=== PATIENT | female | born 1980 | race African-American/Black ===

== ENCOUNTER 2017-06-05 10:50 | Emergency (ER) | payer OTHER ==
[~2017-06-05] VITALS: Ht 149.9 cm; Wt 90.7 kg
[~2017-06-05 10:50] MED LIST: ALBUTEROL SULF8.5 GM INH; AZITHROMYCIN250 MG ORAL; BUSPAR10 MG ORAL; HYDROCHLOROTHIA25 MG ORAL; LATUDA120 MG PO; LEVOTHYROXINE125 MCG ORAL; LISINOPRIL40 MG ORAL; PAROXETINE HCL20 MG PO; PROMETHAZI6.25 MG/1 ORAL; TRAMADOL HCL50 MG ORAL
[2017-06-05] MEDS ORDERED: NKM (11:00)
[2017-06-05] MEDS ORDERED: HYDROCHLOROTHIA25 MG ORAL (11:46)
[2017-06-05] MEDS ORDERED: SYNTHROID125 MCG ORAL (11:46)
[2017-06-05] MEDS ORDERED: LISINOPRIL40 MG ORAL (11:47)
[2017-06-05 12:05] VITALS: BP 143/98
--- NOTE | 2017-06-06 15:40 | Emergency Room Report ---
History of Present Illness General Chief Complaint: General Complaint Source: Patient Present Illness HPI 36-year-old female presents to ED for evaluation. Notes cramping of her hands for the last 5 days. Throbbing, 5/10, nonradiating. States that she has history of hypothyroidism and normally takes Synthroid. Has not take her medication nearly 9 months ago she does not have a PMD. States that she is at cramping sensations like this when she did not take her Synthroid. No other aggravating or leading factors. Denies any other associated symptoms Allergies: Coded Allergies: No Known Allergies (Unverified , 03/30/15) Patient History Last Menstrual Period: 3 1/2 weeks ago Now: No Immunizations: UTD Reviewed Nursing Documentation: PMH: Agreed, PSxH: Agreed Nursing Documentation-PMH Hx Cardiac Problems: Yes - Hypothyroidism Hx Hypertension: Yes Hx Neurological Problems: Yes - Rheumatoid arthritis Review of Systems All Other Systems: negative except mentioned in HPI Physical Exam Vital Signs Date Time Temp Pulse Resp B/P (MAP) Pulse Ox O2 Delivery O2 Flow Rate FiO2 06/05/17 10:56 98.4 99 16 143/98 99 Room Air Sp02 EP Interpretation: reviewed, normal General Appearance: no apparent distress, alert, GCS 15, non-toxic Head: normocephalic, atraumatic Eyes: bilateral eye normal inspection, bilateral eye PERRL ENT: hearing grossly normal, normal pharynx, no angioedema, normal voice Neck: full range of motion, supple/symm/no masses Respiratory: chest non-tender, lungs clear, normal breath sounds, speaking full sentences Cardiovascular #1: regular rate, rhythm, no edema Cardiovascular #2: 2+ carotid (R), 2+ carotid (L), 2+ radial (R), 2+ radial (L) , 2+ dorsalis pedis (R), 2+ dorsalis pedis (L) Gastrointestinal: normal bowel sounds, non tender, soft, non-distended, no guarding, no rebound Rectal: deferred Genitourinary: normal inspection, no CVA tenderness Musculoskeletal: back normal, gait/station normal, normal range of motion, non- tender Neurologic: alert, oriented x3, responsive, motor strength/tone normal, sensory intact, speech normal Psychiatric: judgement/insight normal, memory normal, mood/affect normal, no suicidal/homicidal ideation Reflexes: 3+ bicep (R), 3+ bicep (L), 3+ tricep (R), 3+ tricep (L), 3+ knee (R) , 3+ knee (L) Skin: normal color, no rash, warm/dry, well hydrated Lymphatic: no adenopathy Medical Decision Making Diagnostic Impression: Primary Impression: Medication refill Additional Impression: Hypothyroidism Qualified Codes: E03.9 - Hypothyroidism, unspecified ER Course 36-year-old female presents to ED refill of her medication. History of hypothyroidism takes synthroid hospital course: After initial history and physical, I ordered TSH T4 and T3 level TSH within normal limits, T4 low, T3 pending Patient given refill of her Synthroid, given refills of her hydrochlorothiazide and lisinopril Diagnosis-encounter for medication refill, hypothyroidism Stable and discharged to home with prescription for synthroid, lisinopril, hctz. Followup with PMD. Return to ED if symptoms recur or worsen Labs Test 06/05/17 11:42 Thyroid Stimulating Hormone (TSH) 2.696 uiU/mL (0.358-3.740) Free Thyroxine 0.68 NG/DL (0.76-1.46) Free Triiodothyronine 2.6 pg/mL (2.3-4.2) Last Vital Signs Date Time Temp Pulse Resp B/P (MAP) Pulse Ox O2 Delivery O2 Flow Rate FiO2 06/05/17 12:05 98.4 16 143/98 99 Room Air 06/05/17 10:56 99 Status: improved Disposition: HOME, SELF-CARE Condition: Stable Scripts Lisinopril* (LISINOPRIL*) 40 Mg Tablet 40 MG ORAL DAILY, #30 TAB Prov: SUSANNA LARES M.D. 06/05/17 Hydrochlorothiazide* (HYDROCHLOROTHIAZIDE*) 25 Mg Tablet 25 MG ORAL DAILY, #30 TAB Prov: SUSANNA LARES M.D. 06/05/17 Levothyroxine Sodium* (SYNTHROID*) 125 Mcg Tablet 125 MCG ORAL DAILY, #30 TAB Take in the morning on an empty stomach, at least 30 minutes before food. Prov: SUSANNA LARES M.D. 06/05/17 Referrals: [facility],REFERRING (PCP) Patient Instructions: Hypothyroidism SUSANNA LARES M.D. Jun 06, 2017 15:40
== END 2017-06-05 12:05 | disposition home or self-care (01) ==
LOC: EMR 11:45
DX: Z76.0 Encounter for issue of repeat prescription (principal); E03.9 Hypothyroidism, unspecified; I10 Essential (primary) hypertension; M06.9 Rheumatoid arthritis, unspecified
CPT/HCPCS: 36415; 84439; 84443; 84480; 84481; 99283

== ENCOUNTER 2017-10-19 11:12 | Emergency (ER) | payer OTHER ==
[~2017-10-19] VITALS: Ht 147.3 cm; Wt 72.6 kg
[~2017-10-19 11:12] MED LIST changes: +NKM; +SYNTHROID125 MCG ORAL
[2017-10-19 11:44] VITALS: BP 134/91
--- NOTE | 2017-10-19 11:56 | Emergency Room Report ---
History of Present Illness General Chief Complaint: Headache Source: Patient, Medical Record Present Illness HPI Patient present with complaints of headache somewhat diffuse Pain has slowly come on over the past few days in line with her usual headaches Patient has been off her blood pressure medication as well Denies any chest pain or shortness of breath patient had reported lightheadedness at the triage however denies any at this time Denies any back or flank pain Patient reports frustration with attempting to obtain primary physician Was here last time with check of her thyroid levels and medication refill And reports that she has difficulty getting regular physician and that she has been getting in arguments with other primary physician's Allergies: Coded Allergies: No Known Allergies (Unverified , 03/30/15) Patient History Past Medical History: see triage record Pertinent Family History: none Last Menstrual Period: 10/01/17 Reviewed Nursing Documentation: PMH: Agreed; PSxH: Agreed Nursing Documentation-PMH Past Medical History: No History, Except For Hx Cardiac Problems: Yes - Hypothyroidism Hx Hypertension: Yes Hx Neurological Problems: Yes - Rheumatoid arthritis Review of Systems All Other Systems: negative except mentioned in HPI Physical Exam Vital Signs Date Time Temp Pulse Resp B/P (MAP) Pulse Ox O2 Delivery O2 Flow Rate FiO2 10/19/17 11:27 97.8 91 18 134/91 98 Room Air 97.9 Sp02 EP Interpretation: reviewed, normal General Appearance: well appearing, no apparent distress Head: normocephalic, atraumatic Eyes: bilateral eye PERRL, bilateral eye EOMI ENT: hearing grossly normal, normal pharynx, TMs + canals normal, uvula midline Neck: full range of motion, supple, no meningismus, no bony tend Respiratory: lungs clear, normal breath sounds, no rhonchi, no respiratory distress, no retraction, no accessory muscle use Cardiovascular #1: normal peripheral pulses, regular rate, rhythm, no edema, no gallop, no JVD, no murmur Gastrointestinal: normal bowel sounds, non tender, soft, no mass, no organomegaly, non-distended, no guarding, no hernia, no pulsatile mass, no rebound Genitourinary: no CVA tenderness Musculoskeletal: normal inspection Neurologic: oriented x3, responsive, hearings reporter III-XII nml as tested, motor strength/ tone normal, sensory intact Psychiatric: mood/affect normal Skin: normal color, no rash, warm/dry, palpation normal Lymphatic: normal inspection, no adenopathy Medical Decision Making Diagnostic Impression: Primary Impression: Headache Additional Impression: Hypothyroidism ER Course Patient's presentation is consistent with breakthrough headache Patient also requesting medication refill She has a benign neurological exam I do not suspect any central process and patient stable for close outpatient follow-up Rhythm Strip Diag. Results EP Interpretation: yes Rate: 67 Rhythm: NSR, no PVC's, no ectopy Last Vital Signs Date Time Temp Pulse Resp B/P (MAP) Pulse Ox O2 Delivery O2 Flow Rate FiO2 10/19/17 11:44 97.9 84 18 134/91 98 Room Air 97.9 Status: improved Disposition: HOME, SELF-CARE Condition: Improved Additional Instructions: Patient is provided with the discharge instructions notified to follow up with primary doctor in the next 2-3 days otherwise return to the er with any worsening symptoms. Please note that this report is being documented using [employer] technology. This can lead to erroneous entry secondary to incorrect interpretation by the dictating instrument. Rick Antony DO October 19, 2017 11:56
[2017-10-19] MEDS ORDERED: LISINOPRIL40 MG ORAL (12:14)
[2017-10-19] MEDS ORDERED: HYDROCHLOROTHIA25 MG ORAL (12:14)
[2017-10-19] MEDS ORDERED: LEVOTHYROXINE125 MCG ORAL (12:14)
== END 2017-10-19 12:45 | disposition home or self-care (01) ==
LOC: EMR 12:31
DX: R51 Headache (principal); E03.9 Hypothyroidism, unspecified; I10 Essential (primary) hypertension; M06.9 Rheumatoid arthritis, unspecified
CPT/HCPCS: 99283